=== PATIENT | male | born 1945 | race Caucasian/White ===

== ENCOUNTER → 2019-10-27 | Outpatient (CLI) | payer MEDICARE, BC ==
[~2019-10-27] MED LIST: ALLOPURINOL 30300 M2 PO; ASPIR 8181 MG PO; ATIVAN0.5 MG PO; ATORVASTATIN CA40 MG PO; BACTRIM DS TAB1 EACH PO; CELEXA20 MG PO; CELEXA40 MG PO; CLARITIN10 MG PO; CODEINE-GUAIFE120 ML PO; COENZYME Q10100 MG PO; COZAAR 25 MG TA25 M1 PO; FEMARA2.5 MG PO; FISH OIL OMEGA1 EAC2 PO; FLAX OIL1000 MG PO; FLAX SEED OIL1000 MG PO; FLAX SEED PO; GAVISCON TABLE1 EACH PO; GLUCOTROL5 MG PO; KEPPRA 500 MG500 MG PO; LIPITOR80 MG PO; METFORMIN HCL500 MG PO; OMEGA-31000 M1 PO; OMEPRAZOLE40 MG PO; PREDNISONE 10 M10 MG PO; VITAMIN E400 UNIT PO
== END | disposition home or self-care (01) ==
LOC: M.RAD 10:16 → M.PC 10:16
DX: M53.3 Sacrococcygeal disorders, not elsewhere classified (principal); M54.5 Low back pain; M96.1 Postlaminectomy syndrome, not elsewhere classified; E78.5 Hyperlipidemia, unspecified; N40.0 Benign prostatic hyperplasia without lower urinary tract symptoms; F32.9 Major depressive disorder, single episode, unspecified; Z98.890 Other specified postprocedural states; Z79.899 Other long term (current) drug therapy; Z88.8 Allergy status to other drugs, medicaments and biological substances
CPT/HCPCS: G0260

== ENCOUNTER → 2019-11-15 | Outpatient (CLI) | payer MEDICARE, BC | LOC: M.PC 01:05 | DX: M12.88 Other specific arthropathies, not elsewhere classified, other specified site (principal); E78.5 Hyperlipidemia, unspecified; Z87.39 Personal history of other diseases of the musculoskeletal system and connective tissue ==